=== PATIENT | female | born 1965 | race Hispanic/Latino ===

== ENCOUNTER 2017-09-28 13:59 | Emergency (ER) | payer OTHER ==
[2017-09-28 13:59] VITALS: BMI 27.4
[2017-09-28 14:18] VITALS: TEMP 99; O2SAT 96
--- NOTE | 2017-09-28 14:57 | ED PDOC ---
Arrival/HPI - General Chief Complaint: Lower Extremity Problem/Injury Time Seen by Provider: 09/28/17 14:23 Historian: Patient - History of Present Illness Narrative History of Present Illness (Text): 09/28/17 14:53 52 y.o. female with a history of ingrown toe nail who says that she had a pedicure about a month ago, and since then has been feeling pain in her right big toe at the tip, then 3 days ago, her granddaughter stepped on the same toe, causing more pain. She also reports R calf pain and tightness over the past week. No fever or cp or sob. No PMD Time/Duration: > month Past Medical History - Provider Review Nursing Documentation Reviewed: Yes - Past Medical History Past Medical History: No Previous - Hematological/Oncological Hx Blood Transfusions: No Hx Blood Transfusion Reaction: No - Psychiatric Hx Depression: No Hx Emotional Abuse: No Hx Physical Abuse: No Hx Substance Use: No - Past Surgical History Past Surgical History: No Previous - Anesthesia Hx Anesthesia Reactions: No Hx Malignant Hyperthermia: No - Suicidal Assessment Feels Threatened In Home Enviroment: No Family/Social History - Physician Review Nursing Documentation Reviewed: Yes Family/Social History: No Known Family HX Smoking Status: Never Smoked Hx Alcohol Use: No Hx Substance Use: No Allergies/Home Meds Allergies/Adverse Reactions: Allergies No Known Allergies Allergy (Verified 09/28/17 14:18) Review of Systems - Review of Systems Constitutional: absent: Fevers Skin: Other (R big toe pain, ingrown toe nail) Physical Exam Vital Signs Temp Pulse Resp BP Pulse Ox 09/28/17 15:56 75 18 145/78 96 09/28/17 14:13 99 F 80 16 147/81 96 Temperature: Afebrile Blood Pressure: Normal Pulse: Regular Respiratory Rate: Normal Appearance: Positive for: Well-Appearing, Non-Toxic, Comfortable Pain Distress: None Mental Status: Positive for: Alert and Oriented X 3 - Systems Exam Head: Present: Atraumatic, Normocephalic Neck: Present: Normal Range of Motion Respiratory/Chest: No: Respiratory Distress, Accessory Muscle Use, Tachypneic Lower Extremity: Present: NORMAL PULSES, Normal ROM, Tenderness (ttp over the posterior R calf but no swelling or lesions or erythema. TTP of the medial tip of the right big toe with erythema around the periphery nail at the distal medial side; no pus). No: Edema, Cyanosis, Anupam's Sign Medical Decision Making ED Course and Treatment: 09/28/17 14:57 Impression: 52 year old female with right big toe pain. Plan: -- Right Foot X-Ray -- Lower Extremity Ultrasound -- Keflex -- Motrin -- Ultram -- Reassess and disposition Prior Visits: Notes and results from previous visits were reviewed. Patient was last seen in the emergency department on 06/04/2014 for left great toenail pain. Patient was discharged home. Progress Notes: 09/28/17 16:08 Patient with right big toe paronychia. X-ray is unremarkable. RLE is negative for DVT by sono. Will d/c on antibiotics and f/u podiatry clinic. - RAD Interpretation Radiology Orders: 09/28/17 14:34 DUPLEX LOWER EXTRM VEIN RIGHT [US] Stat 09/28/17 14:37 FOOT RIGHT GREAT TOE ROUTINE [RAD] Stat - Medication Orders Current Medication Orders: Discontinued Medications Cephalexin Monohydrate (Keflex) 500 mg PO STAT STA PRN Reason: Protocol Stop: 09/28/17 14:33 Last Admin: 09/28/17 14:52 Dose: 500 mg Ibuprofen (Motrin Tab) 600 mg PO STAT STA Stop: 09/28/17 14:34 Last Admin: 09/28/17 14:53 Dose: 600 mg MAR Pain/Vitals Document 09/28/17 14:53 EQ (Rec: 09/28/17 14:53 EQ [facility]) Pain Reassessment Is This A Pain ReAssessment? No Sleep Is patient sleeping during reassessment? No Presence of Pain Presence of Pain Yes Tramadol HCl (Ultram) 50 mg PO STAT STA Stop: 09/28/17 14:34 Last Admin: 09/28/17 14:53 Dose: 50 mg MAR Pain Assessment Document 09/28/17 14:53 EQ (Rec: 09/28/17 14:53 EQ [facility]) Pain Reassessment Is this a pain reassessment? No Sleep Is patient sleeping during reassessment? No Presence of Pain Presence of Pain Yes Disposition/Present on Arrival - Present on Arrival Any Indicators Present on Arrival: No History of DVT/PE: No History of Uncontrolled Diabetes: No Urinary Catheter: No History of Decub. Ulcer: No History Surgical Site Infection Following: None - Disposition Have Diagnosis and Disposition been Completed?: Yes Diagnosis: Paronychia of great toe, right Disposition: HOME/ ROUTINE Disposition Time: 16:00 Patient Plan: Discharge Condition: GOOD Discharge Instructions (ExitCare): Ingrown Nail (ED), Paronychia (ED) Additional Instructions: Warm soaks to the affected area. Ibuprofen for pain. Take the antibiotic as prescribed. Follow up with podiatry. Return to the emergency department if any new concerning symptoms. Prescriptions: Cephalexin [Keflex] 500 mg PO TID #30 cap Ibuprofen [Motrin Tab] 1 tab PO Q8H PRN #20 tab PRN Reason: Pain, Moderate (4-7) Referrals: Podiatry Clinic [Outside] - Follow up with primary Pebbles Gonzalez DPM [Staff Provider] - Follow up with primary Forms: [employer] (Japanese)
[2017-09-28 15:56] VITALS: BP 145/78; PULSE 75; RESP 18
--- NOTE | 2017-09-28 16:00 | RAD ---
PROCEDURE: Radiographs of the right great toe. TECHNIQUE:: AP radiograph of the right foot, with oblique and lateral view of the right great toe. COMPARISON: None. FINDINGS: BONES: Bone alignment and mineralization are normal. There is no acute displaced fracture or bone destruction. There is a large plantar calcaneal spur. There is a prominent dorsal calcaneal enthesophyte. JOINTS: There is mild degenerative osteoarthrosis in the 1st MTP joint. The remaining joint spaces are preserved. SOFT TISSUES: Normal. OTHER FINDINGS: None. IMPRESSION: No acute fracture or dislocation. Large plantar calcaneal spur. 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
--- NOTE | 2017-09-28 17:52 | US ---
PROCEDURE: Right lower extremity venous US HISTORY: Leg pain and swelling. Evaluate for DVT. PHYSICIAN(S): Aldo Green M.D. TECHNIQUE: Duplex sonography and color-flow Doppler with graded compression were used to evaluate the deep venous system of the right lower extremity. FINDINGS: The visualized deep venous system of the right lower extremity is sonographically normal and compressible. Normal waveforms and augmentation are seen. There is no sonographic evidence for deep venous thrombosis in the visualized segments of the right lower extremity. IMPRESSION: 1. No sonographic evidence for deep venous thrombosis in the visualized segments of the right lower extremity.
== END 2017-09-28 16:24 | disposition home or self-care (01) ==
LOC: ED 13:59
DX: L03.031 Cellulitis of right toe (principal)